=== PATIENT | male | born 1980 | race African-American/Black ===

== ENCOUNTER 2017-07-23 05:47 | Emergency (ER) | payer MEDICAID, OTHER ==
[~2017-07-23] VITALS: Ht 170.2 cm; Wt 81.8 kg
[2017-07-23] MEDS ORDERED: CITA20TA9 PO (05:56)
[2017-07-23] MEDS ORDERED: PALI234D IM (05:56)
[2017-07-23] MEDS ORDERED: ZOLP10TA7 PO (05:56)
[2017-07-23 06:20] LABS: BASOPHILS % (AUTO) 0.9 % (0.0-2.0); EOSINOPHILS % (AUTO) 0.8 % (1.0-6.0); HEMATOCRIT 41.9 % (41-53); HEMOGLOBIN 13.6 g/dL (13.5-17.5); LYMPHOCYTES # (AUTO) 1.2 K/uL (1.0-4.8); LYMPHOCYTES % (AUTO) 16.5 % (22.0-44.0); MEAN CORPUSCULAR HEMOGLOBIN 27.8 pg (26.0-34.0); MEAN CORPUSCULAR HGB CONC 32.4 G/dL (31.0-37.0); MEAN CORPUSCULAR VOLUME 86 fL (80-100); MONOCYTES # (AUTO) 0.6 K/uL (0.1-1.0); NEUTROPHILS # (AUTO) 5.3 K/uL (1.8-7.7); NEUTROPHILS % (AUTO) 73.8 % (40.0-70.0); PLATELET COUNT (AUTO) 416 K/uL (150-450); RED BLOOD CELL COUNT(AUTO) 4.88 MIL/uL (4.50-5.90); RED CELL DISTRIBUTION WIDTH 14.6 % (11.5-14.5)
[2017-07-23 06:26] LABS: AMPHET/METH SCREEN,URINE POSITIVE (NEGATIVE); BARBITURATE SCREEN, URINE NEGATIVE (NEGATIVE); BENZODIAZEPINES SCREEN,URINE NEGATIVE (NEGATIVE); CANNABINOID SCREEN,URINE POSITIVE (NEGATIVE); COCAINE SCREEN,URINE NEGATIVE (NEGATIVE); METHADONE SCREEN, URINE NEGATIVE (NEGATIVE); OPIATE SCREEN,URINE NEGATIVE (NEGATIVE)
[2017-07-23 06:28] LABS: ANION GAP 11 mmol/L (8-16); CALCIUM, TOTAL 9.6 mg/dL (8.8-10.5); CARBON DIOXIDE 29 mmol/L (22-29); CHLORIDE 101 mmol/L (98-107); CREATININE 1.17 mg/dL (0.60-1.30); GLOMERULAR FILTR. RATE CALC > 60 mL/min (>60); GLUCOSE,RANDOM 109 mg/dL (70-110); POTASSIUM 3.3 mmol/L (3.5-5.1); SODIUM SERUM 141 mmol/L (136-145); UREA NITROGEN, BLOOD 12 mg/dL (7-18)
[2017-07-23 06:29] LABS: PHENCYCLIDINE SCREEN,URINE NEGATIVE (NEGATIVE)
[2017-07-23 06:33] LABS: ALANINE AMINOTRANSFERASE 35 U/L (12-78); ALBUMIN 4.1 g/dL (3.4-5.0); ALKALINE PHOSPHATASE 87 U/L (46-116); ASPARTATE AMINOTRANSFERASE 22 U/L (15-37); BILIRUBIN,TOTAL 0.7 mg/dL (0.1-1.0); TOTAL PROTEIN, SERUM 8.4 g/dL (6.4-8.2)
[2017-07-23] MEDS ORDERED: POTASSIUM CHLORIDE 10% 40 MEQ/30 ML LIQUID UDCUP PO ONE (07:15)
[2017-07-23] MEDS ORDERED: LORazepam 2 MG TABLET PO ONE (09:15)
[2017-07-23 10:10] VITALS: BP 89/87
== END 2017-07-23 10:15 | disposition home or self-care (01) ==
LOC: EEVIPCON 05:48 → EMS 05:48
DX: F15.10 Other stimulant abuse, uncomplicated (principal); R45.850 Homicidal ideations; E87.6 Hypokalemia; F20.9 Schizophrenia, unspecified; F17.210 Nicotine dependence, cigarettes, uncomplicated; F12.90 Cannabis use, unspecified, uncomplicated; Z88.8 Allergy status to other drugs, medicaments and biological substances
CPT/HCPCS: 36415; 80053; 80307; 85025; 99284; 99406; G0480

== ENCOUNTER 2018-05-23 17:33 | Inpatient (IN) | payer MEDICAID ==
[~2018-05-23] VITALS: Ht 170.2 cm; Wt 91.3 kg
[~2018-05-23 17:33] MED LIST: CITA-106 PO; FERR-89 PO; RISP3 PO
[2018-05-23 19:06] VITALS: BP 139/88
[2018-05-23 19:50] VITALS: BP 147/90
[2018-05-23] MEDS ORDERED: IBUPROFEN 400 MG TABLET PO PRN (20:00)
[2018-05-23] MEDS ORDERED: GuaiFENesin/D-METHORPHAN [SUGAR-FREE] 200-20MG/10 ML SYRUP UDCUP PO PRN (20:00)
[2018-05-23] MEDS ORDERED: LOPERAMIDE HCL 2 MG CAPSULE PO PRN (20:00)
[2018-05-23] MEDS ORDERED: MAG HYDROX/AL HYDROX/SIMETH ES 30 ML SUSPENSION UDCUP PO PRN (20:00)
[2018-05-23] MEDS ORDERED: ACETAMINOPHEN 325 MG TABLET PO PRN (20:00)
[2018-05-23] MEDS ORDERED: ONDANSETRON HCL 4 MG TABLET PO PRN (20:00)
[2018-05-23] MEDS ORDERED: CloNIDine HCL 0.1 MG TABLET PO PRN (20:00)
[2018-05-23] MEDS ORDERED: MAGNESIUM HYDROXIDE SUSPENSION 30 ML UDCUP PO PRN (20:00)
[2018-05-23] MEDS ORDERED: DOCUSATE SODIUM 100 MG CAPSULE PO PRN (20:00)
[2018-05-23] MEDS ORDERED: ALBUTEROL SULFATE HFA 90 MCG/PUFF 8 GM INHALER IH PRN (20:00)
[2018-05-23] MEDS ORDERED: PETROLATUM,WHITE 71 GM JELLY TP PRN (20:00)
[2018-05-23] MEDS ORDERED: NICOTINE 14 MG/24 HOUR PATCH TD PRN (20:00)
[2018-05-24 06:36] VITALS: BP 129/86
[2018-05-24 08:04] VITALS: BP 125/80
[2018-05-24 08:44] LABS: BASOPHILS % (AUTO) 0.9 % (0.0-2.0); EOSINOPHILS % (AUTO) 4.3 % (1.0-6.0); HEMATOCRIT 39.5 % (41-53); HEMOGLOBIN 13.2 g/dL (13.5-17.5); LYMPHOCYTES # (AUTO) 1.7 K/uL (1.0-4.8); LYMPHOCYTES % (AUTO) 34.8 % (22.0-44.0); MEAN CORPUSCULAR HGB CONC 33.4 G/dL (31.0-37.0); MEAN CORPUSCULAR VOLUME 90 fL (80-100); MONOCYTES # (AUTO) 0.4 K/uL (0.1-1.0); MONOCYTES % (AUTO) 8.5 % (2.0-9.0); NEUTROPHILS # (AUTO) 2.6 K/uL (1.8-7.7); NEUTROPHILS % (AUTO) 51.5 % (40.0-70.0); PLATELET COUNT (AUTO) 370 K/uL (150-450); RED BLOOD CELL COUNT(AUTO) 4.39 MIL/uL (4.50-5.90); RED CELL DISTRIBUTION WIDTH 14.1 % (11.5-14.5)
[2018-05-24 08:55] LABS: HEMOGLOBIN A1C 5.9 % (4.5-6.2)
[2018-05-24 09:14] LABS: ALANINE AMINOTRANSFERASE 36 U/L (12-78); ALBUMIN 3.2 g/dL (3.4-5.0); ALKALINE PHOSPHATASE 56 U/L (46-116); ANION GAP 6 mmol/L (8-16); ASPARTATE AMINOTRANSFERASE 22 U/L (15-37); BILIRUBIN,TOTAL 0.3 mg/dL (0.1-1.0); CALCIUM, TOTAL 8.8 mg/dL (8.8-10.5); CARBON DIOXIDE 31 mmol/L (22-29); CHLORIDE 106 mmol/L (98-107); CHOL/HDL RATIO 2.6 (4.2-7.3); CHOLESTEROL 134 mg/dL (131-200); CREATININE 0.91 mg/dL (0.60-1.30); FREE T4 (FREE THYROXINE) 0.71 ng/dL (0.76-1.46); GLOMERULAR FILTR. RATE CALC > 60 mL/min (>60); GLUCOSE,RANDOM 93 mg/dL (70-110); HDL CHOLESTEROL 51 mg/dL (40-60); LDL CHOL (CALC.) 62 mg/dL (0-130); POTASSIUM 3.7 mmol/L (3.5-5.1); SODIUM SERUM 143 mmol/L (136-145); TOTAL PROTEIN, SERUM 6.9 g/dL (6.4-8.2); TRIGLYCERIDES 106 mg/dL (15-150); UREA NITROGEN, BLOOD 13 mg/dL (7-18)
[2018-05-24] MEDS: CITALOPRAM HYDROBROMIDE 20 MG TABLET PO SCH (13:55)
[2018-05-24 16:00] VITALS: BP 114/72
[2018-05-24] MEDS: FERROUS SULFATE 325 MG EC TABLET PO SCH (17:16)
[2018-05-24] MEDS: LORazepam 2 MG TABLET PO PRN (17:16)
[2018-05-24] MEDS: ZOLPIDEM TARTRATE 10 MG TABLET PO PRN (20:42)
[2018-05-24] MEDS: ChlorproMAZINE HCL 100 MG TABLET PO SCH (20:42)
[2018-05-25 06:31] VITALS: BP 110/62
[2018-05-25] MEDS: FERROUS SULFATE 325 MG EC TABLET PO SCH ×3 (06:31→17:10)
[2018-05-25 08:04] VITALS: BP 112/66
[2018-05-25] MEDS: CITALOPRAM HYDROBROMIDE 20 MG TABLET PO SCH (08:45)
[2018-05-25] MEDS: LORazepam 2 MG TABLET PO PRN ×2 (10:03→18:04)
[2018-05-25 16:00] VITALS: BP 117/64
[2018-05-25] MEDS: ZOLPIDEM TARTRATE 10 MG TABLET PO PRN (20:54)
[2018-05-25] MEDS: ChlorproMAZINE HCL 100 MG TABLET PO SCH (20:54)
[2018-05-26] MEDS: FERROUS SULFATE 325 MG EC TABLET PO SCH ×3 (06:23→16:32)
[2018-05-26 06:48] VITALS: BP 109/69
[2018-05-26 08:14] VITALS: BP 110/59
[2018-05-26] MEDS: CITALOPRAM HYDROBROMIDE 20 MG TABLET PO SCH (08:34)
[2018-05-26] MEDS: LORazepam 2 MG TABLET PO PRN ×2 (11:24→16:32)
[2018-05-26 16:00] VITALS: BP 107/74
[2018-05-26] MEDS: ChlorproMAZINE HCL 100 MG TABLET PO SCH (20:09)
[2018-05-26] MEDS: ZOLPIDEM TARTRATE 10 MG TABLET PO PRN (20:11)
[2018-05-27 05:51] VITALS: BP 112/72
[2018-05-27] MEDS: FERROUS SULFATE 325 MG EC TABLET PO SCH ×3 (06:36→17:27)
[2018-05-27] MEDS: CITALOPRAM HYDROBROMIDE 10 MG TABLET PO SCH (08:34)
[2018-05-27 08:35] VITALS: BP 110/69
[2018-05-27] MEDS: LORazepam 2 MG TABLET PO PRN ×3 (09:59→21:35)
[2018-05-27 16:00] VITALS: BP 122/71
[2018-05-27] MEDS: ChlorproMAZINE HCL 100 MG TABLET PO SCH (20:41)
[2018-05-27] MEDS: ZOLPIDEM TARTRATE 10 MG TABLET PO PRN (20:42)
[2018-05-28] MEDS: FERROUS SULFATE 325 MG EC TABLET PO SCH ×3 (06:25→16:05)
[2018-05-28 06:37] VITALS: BP 110/63
[2018-05-28 08:00] VITALS: BP 113/68
[2018-05-28] MEDS: CITALOPRAM HYDROBROMIDE 10 MG TABLET PO SCH (08:13)
[2018-05-28] MEDS: LORazepam 2 MG TABLET PO PRN ×2 (12:53→18:50)
[2018-05-28 16:24] VITALS: BP 113/67
[2018-05-28] MEDS: ChlorproMAZINE HCL 100 MG TABLET PO SCH (20:15)
[2018-05-28] MEDS: ZOLPIDEM TARTRATE 10 MG TABLET PO PRN (20:29)
[2018-05-29] MEDS: FERROUS SULFATE 325 MG EC TABLET PO SCH ×3 (06:34→16:42)
[2018-05-29 06:43] VITALS: BP 119/75
[2018-05-29 08:04] VITALS: BP 113/65
[2018-05-29] MEDS: CITALOPRAM HYDROBROMIDE 10 MG TABLET PO SCH (08:35)
[2018-05-29 16:00] VITALS: BP 115/69
[2018-05-29] MEDS: LORazepam 2 MG TABLET PO PRN ×2 (16:42→21:33)
[2018-05-29] MEDS: HALOPERIDOL 5 MG TABLET PO PRN (17:33)
[2018-05-29] MEDS: ChlorproMAZINE HCL 100 MG TABLET PO SCH (20:34)
[2018-05-29] MEDS: ZOLPIDEM TARTRATE 10 MG TABLET PO PRN (20:34)
[2018-05-30] MEDS: FERROUS SULFATE 325 MG EC TABLET PO SCH ×3 (06:30→16:09)
[2018-05-30 06:46] VITALS: BP 117/76
[2018-05-30 08:05] VITALS: BP 108/58
[2018-05-30] MEDS: CITALOPRAM HYDROBROMIDE 10 MG TABLET PO SCH (08:25)
[2018-05-30] MEDS: LORazepam 2 MG TABLET PO PRN ×2 (13:46→20:17)
[2018-05-30 16:00] VITALS: BP 107/61
[2018-05-30] MEDS: HALOPERIDOL 5 MG TABLET PO PRN (16:09)
[2018-05-30] MEDS: ZOLPIDEM TARTRATE 10 MG TABLET PO PRN (20:17)
[2018-05-30] MEDS: ChlorproMAZINE HCL 100 MG TABLET PO SCH (20:17)
[2018-05-31 06:40] VITALS: BP 112/65
[2018-05-31] MEDS: FERROUS SULFATE 325 MG EC TABLET PO SCH ×3 (06:42→16:25)
[2018-05-31 08:16] VITALS: BP 114/62
[2018-05-31] MEDS: CITALOPRAM HYDROBROMIDE 10 MG TABLET PO SCH (08:33)
[2018-05-31] MEDS: LORazepam 2 MG TABLET PO PRN ×2 (10:53→16:25)
[2018-05-31 16:00] VITALS: BP 116/70
[2018-05-31] MEDS: ZOLPIDEM TARTRATE 10 MG TABLET PO PRN (20:32)
[2018-05-31] MEDS: ChlorproMAZINE HCL 100 MG TABLET PO SCH (20:32)
[2018-06-01 01:12] VITALS: BP 112/75
[2018-06-01] MEDS: FERROUS SULFATE 325 MG EC TABLET PO SCH (06:43)
[2018-06-01 08:04] VITALS: BP 115/68
[2018-06-01] MEDS: CITALOPRAM HYDROBROMIDE 10 MG TABLET PO SCH (08:34)
[2018-06-01] MEDS ORDERED: CHLO100T24 PO (09:33)
== END 2018-06-01 11:55 | disposition home or self-care (01) | DRG 750 ==
LOC: B3A 19:03
DX: F25.1 Schizoaffective disorder, depressive type (principal); R45.851 Suicidal ideations; Z59.0 Homelessness; D64.9 Anemia, unspecified; F10.10 Alcohol abuse, uncomplicated; F41.9 Anxiety disorder, unspecified; F19.10 Other psychoactive substance abuse, uncomplicated; G47.00 Insomnia, unspecified; Z71.41 Alcohol abuse counseling and surveillance of alcoholic; Z71.51 Drug abuse counseling and surveillance of drug abuser; Z88.8 Allergy status to other drugs, medicaments and biological substances
CPT/HCPCS: 83036; 84439; 84443; 90686